=== PATIENT | male | born 1950 | race Caucasian/White ===

== ENCOUNTER 2018-01-07 17:02 | Inpatient (IN) | payer MEDICARE, OTHER ==
[~2018-01-07] VITALS: Ht 167.6 cm; Wt 55.8 kg
--- NOTE | 2018-01-07 17:02 | NUR ---
Patient is now here in [facility]ER dept for medical clearance by our ER doctor. Patient is on psych HOLD since 1500 today by Stephon Jeter and for admission to our MHU bed 139-B. Per medical records that came with the patient & per nursing hairspring fabrication supervisor-Kong, this patient was already accepted by Dr Judge & Dr Mike Merida before coming to out ER department. fire control officer ([phone]) was called for heads up.
[2018-01-07 17:36] LABS: BASOPHILS # (AUTO) 0.1 K/uL (0.0-8.0); BASOPHILS % (AUTO) 1.2 % (0.0-2.0); EOSINOPHILS # (AUTO) 0.1 K/uL (0.0-0.7); EOSINOPHILS % (AUTO) 0.7 % (0.0-7.0); HEMATOCRIT 38.2 % (36.7-47.1); HEMOGLOBIN 12.9 g/dL (12.5-16.3); LYMPHOCYTES # (AUTO) 1.3 K/uL (20.0-40.0); LYMPHOCYTES % (AUTO) 15.4 % (20.5-51.5); MEAN CORPUSCULAR HEMOGLOBIN 30.6 uug (23.8-33.4); MEAN CORPUSCULAR HGB CONC 34 g/dL (32.5-36.3); MEAN CORPUSCULAR VOLUME 90.4 fL (73.0-96.2); MONOCYTES # (AUTO) 0.8 K/uL (2.0-10.0); MONOCYTES % (AUTO) 10.4 % (0.0-11.0); NEUTROPHILS # (AUTO) 5.9 K/uL (1.8-8.9); NEUTROPHILS % (AUTO) 72.3 % (38.5-71.5); PLATELET COUNT (AUTO) 250 K/uL (152-348); RED BLOOD CELL COUNT(AUTO) 4.23 MIL/uL (4.06-5.63); WHITE BLOOD COUNT (AUTO) 8.2 K/uL (3.6-10.2)
[2018-01-07 17:45] LABS: CARBON DIOXIDE 29 mmol/L (21-32); CHLORIDE 103 mmol/L (98-107); CREATININE 0.8 mg/dL (0.6-1.3); GLUCOSE 89 mg/dL (74-106); POTASSIUM 4.2 mmol/L (3.5-5.1); UREA NITROGEN, BLOOD 18 mg/dL (7-18)
[2018-01-07] MEDS ORDERED: TEMA7.5C PO (17:48)
[2018-01-07] MEDS ORDERED: NICO-670 TD (17:48)
[2018-01-07] MEDS ORDERED: MAGN400O6 PO (17:48)
[2018-01-07] MEDS ORDERED: GABA100C PO (17:48)
[2018-01-07] MEDS ORDERED: DOCU250C14 PO (17:48)
[2018-01-07] MEDS ORDERED: OXYB15TA PO (17:48)
[2018-01-07] MEDS ORDERED: NA P133E RC (17:48)
[2018-01-07] MEDS ORDERED: NICO4GUM38 BC (17:48)
[2018-01-07] MEDS ORDERED: BISA10SU12 RC (17:48)
[2018-01-07] MEDS ORDERED: FINA5TAB3 PO (17:48)
[2018-01-07] MEDS ORDERED: ESCI10TA PO (17:48)
[2018-01-07] MEDS ORDERED: PANT40TA2 PO (17:48)
[2018-01-07] MEDS ORDERED: CALC100067 PO (17:48)
[2018-01-07] MEDS ORDERED: ACET325T53 PO (17:48)
[2018-01-07] MEDS ORDERED: OLAN2.5T3 PO (17:48)
[2018-01-07] MEDS ORDERED: TAMS-3 PO (17:48)
[2018-01-07] MEDS ORDERED: LORA-259 PO (17:48)
[2018-01-07 17:49] LABS: ETHANOL < 3 MG/DL (0-0)
[2018-01-07 17:51] LABS: ALANINE AMINOTRANSFERASE 25 U/L (16-63); ALKALINE PHOSPHATASE 94 U/L (50-136); ASPARTATE AMINOTRANSFERASE 20 U/L (15-37); BILIRUBIN,DIRECT 0.1 mg/dL (0.0-0.2); BILIRUBIN,TOTAL 0.5 mg/dL (0.2-1.0); TOTAL PROTEIN, SERUM 7.2 g/dL (6.4-8.2)
[2018-01-07 18:04] LABS: ACETAMINOPHEN < 2.0 ug/mL (10-30)
--- NOTE | 2018-01-07 18:28 | NUR ---
1814- Patient ambulated to the bathroom with a walker to provide the urine. 1820- Urine was sent to lab. 1827- Patient is eating dinner now. Pre & post-void bladder scans were done by TAYO Sawyer. Dr Morrison reviewed the bladder scan results.
[2018-01-07 18:29] LABS: *BILIRUBIN,URIN NEGATIVE (NEGATIVE); *BLOOD, URINE NEGATIVE (NEGATIVE); *CLARITY,URINE CLEAR (CLEAR); *COLOR,URINE YELLOW (YELLOW); *KETONES,URINE NEGATIVE (NEGATIVE); *PROTEIN,URINE NEGATIVE (NEGATIVE); *UROBILINOGEN,URINE 0.2 E.U./dl (NORMAL); LEUKOCYTE ESTERASE ,URINE NEGATIVE (NEGATIVE); NITRITE, URINE NEGATIVE (NEGATIVE); PH,URINE 8.5 (5.0-8.0); UGLUCOSE NEGATIVE (NEGATIVE)
[2018-01-07 18:43] LABS: BACTERIA,URINE NONE SEEN /HPF (NONE SEEN); RBC,URINE 0-3 /HPF (0-3); SQUAMOUS EPITHELIAL CELL,UR FEW /HPF (NONE SEEN); WBC,URINE 0-3 /HPF (0-3)
--- NOTE | 2018-01-07 18:45 | NUR ---
172- Dr Dubon medically cleared the patient for admission to MHU. 1844- still for 1:1 sitter for MHU admission
[2018-01-07 18:53] LABS: *AMPHETAMINE, URINE NEGATIVE (NEGATIVE); *BARBITURATE, URINE NEGATIVE (NEGATIVE); *CANNABINOID, URINE NEGATIVE (NEGATIVE); *COCCAINE, URINE NEGATIVE (NEGATIVE); *OPIATE, URINE NEGATIVE (NEGATIVE); *PHENCYCLIDINE SCREEN,URINE NEGATIVE (NEGATIVE)
--- NOTE | 2018-01-07 19:05 | NUR ---
Hands off report given to MOE vale for 1:1 sitter & admission to our MHU.
--- NOTE | 2018-01-07 19:14 | NUR ---
REPORT TAKEN FROM MOE MITCHELL. ASSUMING PT CARE AT THIS TIME.
--- NOTE | 2018-01-07 19:25 | NUR ---
REPORT GIVEN TO MOE NICHOLS IN U.
[2018-01-07] MEDS ORDERED: MAG HYDROX/AL HYDROX/SIMETH 30 ML LIQUID UDC PO PRN (19:45)
[2018-01-07] MEDS ORDERED: MAGNESIUM HYDROXIDE 30 ML LIQUID UDC PO PRN (19:45)
--- NOTE | 2018-01-07 19:47 | NUR ---
Pt. admitted to MHU, under care of Dr. RIOS Belongs List completed
[2018-01-07] MEDS: LORAZEPAM 1 MG TABLET PO PRN (20:24)
[2018-01-07] MEDS: NICOTINE 21 MG/24HR PATCH TD SCH (21:00)
--- NOTE | 2018-01-07 22:00 | NUR ---
AT APPROX 1935, ADMITTED 67 YEARS OLD MALE FROM [facility] TO [facility] ON A 5150 FOR GD. HOLD STARED ON 01/07/18 AT 1500 AND WILL END ON 01/10/18 AT 1500. PER HOLD, PATIENT HAS BEEN REFUSING MEDICATION AND CARE. HE ATTEMPTED TO ELOPE THE FACILITY BY BREAKING A WINDOW AND MOVING FURNITURE THE PT BECOME TEARFUL STATING THAT "I WILL NEVER SEE MY MOTHER AGAIN." PT IS ANGRY AT STAFF FOR BEING "LOCKED UP". HE WANTS TO BE OUT ON THE STREETS. PT IS UNABLE TO PROVIDE FOR HIMSELF AND THREATENING HARM WHEN CONFUSED. PATIENT WAS FIRST SEEN AT [facility], HE WAS THEN MEDICALLY CLEARED FOR ADMISSION TO MHU. UPON ENTRY, PATIENT NOTED A/O X2. POOR INSIGHT AND JUDGMENT TO THE REASON FOR HIS ADMISSION TO MHU WAS NOTED. PT REQUESTED TO SMOKE A CIGARETTE, PT WAS GIVEN MULTIPLE REDIRECTION WELL UNIT RULES, HIS HOLD AND THE REASON FOR HIS ADMISSION TO MHU. HOWEVER, HE BECAME ANGRY AND AGITATIVE. HE SAID, "THEY TOLD ME A COULD SMOKE HERE." ATIVAN 1MG PO PRN WAS GIVEN. AFTER A FEW MINUTES, PATIENT STARTED CRYING, HE STATED "I AM NOT GOING TO SEE MY MOTHER AGAIN." I DON'T WANT TO GO BACK TO [facility], I WANT TO BE ON THE STREETS." PATIENT WAS REASSURED. HE REFUSED NICOTINE PATCH. HE PARTIALLY SIGNED ADMISSION PAPERS. SKIN ASSESSMENT WAS LIMITED DUE TO PATIENT'S NON-COMPLIANT. TWO CRUSTED ABRASIONS OF APPROX 5CM X 3 CM EACH WERE NOTED IN LEFT KNEE. PT STATED THAT HE FELL YESTERDAY IN HIS ROOM AT [facility], HE SAID, "IT WAS DARK IN MY ROOM AND I TRIPPED AND FELL LAST NIGHT." IT WAS ALSO OBSERVED OVERLONG AND POSSIBLE FUNGUS TOENAILS BILATERAL, A RASH IN HIS RIGHT LOWER LEG POSTERIOR ASPECT, AND TWO WELL-HEALED SURGICAL SCARS IN HIS LOWER BACK, PROTRUDING SPINE MID-LOWER BACK. PT IS UNDER THE CARE OF DR RIOS AND CHRIST ROONEY ([employer]). PT IS ON 1:1 SUPERVISION FOR FALL PRECAUTION. WILL CONTINUE TO MONITOR.
--- NOTE | 2018-01-07 22:30 | NUR ---
PATIENT NOTED CALM, RESTING IN HIS ROOM. ATIVAN 1MG PO PRN WAS EFFECTIVE. UPON INTERVIEW, PATIENT DENIES SI/HI. DENIES VH/VH. WILL CONTINUE ON 1:1 SUPERVISION FOR FALL SAFETY.
--- NOTE | 2018-01-08 06:51 | NUR ---
PATIENT SLEPT FOR APPROX 6.00 HRS THROUGH THE NIGHT. A SMALL PIMPLE, PINK IN COLOR OF APPROX [id number] WAS NOTED IN UPPER MID BACK. NO DISCHARGE, NO SWELLING WAS NOTED AT THIS, PATIENT DENIES PAIN. HE IS SEEN LESS ANXIOUS. DENIES SI. ABLE TO CFS. WILL CONTINUE ON 1:1 SUPERVISION
[2018-01-08] MEDS: NICOTINE 21 MG/24HR PATCH TD SCH ×2 (09:00→21:30)
[2018-01-08] MEDS ORDERED: ACETAMINOPHEN 325 MG TABLET PO PRN (11:45)
[2018-01-08] MEDS ORDERED: FLEET ENEMA 133 ML BOTTLE RC PRN (11:45)
[2018-01-08] MEDS ORDERED: BISACODYL 10 MG SUPP.RECT RC PRN (11:45)
[2018-01-08] MEDS ORDERED: MAGNESIUM HYDROXIDE 30 ML LIQUID UDC PO PRN (11:45)
--- NOTE | 2018-01-08 14:44 | NUR ---
WOUND CARE CONSULT: PT REFUSED SKIN ASSESSMENT AND WAS EXTREMELY AGITATED. PER NURSING DOCUMENTATION AND PHOTOS, PT HAS PIMPLE LESION TO BACK AND LEFT KNEE ABRASIONS, PRESENT ON ADMISSION. RECOMMENDATIONS MADE BASED ON NURSING REPORT/DOCUMENTATION AND DISCUSSED WITH NURSING STAFF. WILL SEE PRKelvin HARMON IN AGREEMENT WITH PLAN OF CARE.
[2018-01-08] MEDS: BACITRACIN/POLYMYXIN B OINT 15 GM TUBE TOP SCH (15:00)
[2018-01-08] MEDS ORDERED: Z GUARD REMEDY PASTE 57 GM TUBE TOP PRN (15:00)
[2018-01-08 16:06] VITALS: BP 138/66
[2018-01-08] MEDS: OLANZAPINE ZYDIS 5 MG TAB.RAPDIS PO SCH (17:00)
[2018-01-08] MEDS: CALCIUM CARBONATE 500 MG TAB.CHEW PO SCH (17:00)
[2018-01-08] MEDS ORDERED: CALCIUM CARBONATE 500 MG PO SCH (17:00)
--- NOTE | 2018-01-08 19:55 | NUR ---
PATIENT ALERT ORIENTED, NO COMPLAIN OF PAIN AT THIS TIME. PATIENT ON 1;1 SITTER FOR SAFETY, PATIENT RISK FOR FALL, WANDERS AROUND WITH FWW. NO BEHAVIORAL PROBLEM NOTED AT THIS TIME.
[2018-01-08] MEDS: NICOTINE POLACRILEX 4 MG GUM-PK OF TEN BC PRN (20:42)
[2018-01-08] MEDS: TAMSULOSIN HCL 0.4 MG CAP.SR.24H PO SCH (20:44)
[2018-01-08] MEDS: TEMAZEPAM 7.5 MG CAPSULE PO PRN (20:53)
--- NOTE | 2018-01-08 21:30 | NUR ---
PATIENT REFUSED THE PATCH DURING DAY SHIFT, AND REQUEST TO HAVE TONIGHT, PATCH WAS GIVEN PER REQUEST.
[2018-01-09] MEDS: ACETAMINOPHEN 325 MG TABLET PO PRN (01:20)
[2018-01-09] MEDS: LORAZEPAM 1 MG TABLET PO PRN ×3 (01:20→18:40)
[2018-01-09 01:23] VITALS: BP 138/93
--- NOTE | 2018-01-09 06:09 | NUR ---
PATIENT DID NOT SLEPT LAST NIGHT, PATIENT HAS EPISODES OF ANXIETY, WITH MULTIPLE REQUEST NEEDS FROM STAFF, WITH EPISODES OF CRYING, ATTEND ALL NEEDS, REDIRECT PATIENT, AND MEDICATED AT PER PATIENT REQUEST, CONT ON 1;1 SITTER FOR SAFETY. CONT TO MONITOR.
[2018-01-09] MEDS: PANTOPRAZOLE SODIUM 40 MG TABLET.DR PO SCH (06:30)
[2018-01-09 07:30] VITALS: BP 125/82
[2018-01-09] MEDS: CALCIUM CARBONATE 500 MG TAB.CHEW PO SCH ×2 (08:45→16:19)
[2018-01-09] MEDS: FINASTERIDE 5 MG TABLET PO SCH (08:45)
[2018-01-09] MEDS: OXYBUTYNIN XL 5 MG TABSR PO SCH (08:46)
[2018-01-09] MEDS: BACITRACIN/POLYMYXIN B OINT 15 GM TUBE TOP SCH (08:46)
[2018-01-09] MEDS: OLANZAPINE ZYDIS 5 MG TAB.RAPDIS PO SCH ×2 (08:46→16:19)
[2018-01-09] MEDS: ESCITALOPRAM OXALATE 10 MG TABLET PO SCH (08:46)
[2018-01-09] MEDS: DOCUSATE SODIUM 250 MG CAPSULE PO SCH (08:46)
[2018-01-09] MEDS ORDERED: OXYBUTYNIN CHLORIDE 15 MG PO SCH (09:00)
[2018-01-09] MEDS ORDERED: NICOTINE 7 MG/24HR PATCH TD SCH (09:00)
[2018-01-09] MEDS: NICOTINE POLACRILEX 4 MG GUM-PK OF TEN BC PRN (10:28)
[2018-01-09 15:26] VITALS: BP 116/77
--- NOTE | 2018-01-09 19:25 | NUR ---
no changes noted. all safety needs are met.
[2018-01-09 20:20] VITALS: BP 132/66
[2018-01-09] MEDS: TAMSULOSIN HCL 0.4 MG CAP.SR.24H PO SCH (20:27)
[2018-01-09] MEDS: TEMAZEPAM 7.5 MG CAPSULE PO PRN (20:28)
[2018-01-09] MEDS: NICOTINE 21 MG/24HR PATCH TD SCH (21:00)
--- NOTE | 2018-01-09 22:00 | NUR ---
received to care, lying in bed, pleasant, but angry when approached. states he is waiting for placement to a facility, and is hoping to leave by sunday. 1;1 sitte remains at his side, for safety (gait is slightly unsteady) PRN restoril was given at 2027, for insomnia. as of 2199, he appears to be asleep. no distress noted. will continue to monitor closely.
--- NOTE | 2018-01-10 06:00 | NUR ---
slept 5 hours, total. continues to sleep. no distress noted.
[2018-01-10] MEDS: PANTOPRAZOLE SODIUM 40 MG TABLET.DR PO SCH (06:23)
[2018-01-10 08:00] VITALS: BP 126/83
[2018-01-10] MEDS: ESCITALOPRAM OXALATE 10 MG TABLET PO SCH (09:03)
[2018-01-10] MEDS: OXYBUTYNIN XL 5 MG TABSR PO SCH (09:03)
[2018-01-10] MEDS: FINASTERIDE 5 MG TABLET PO SCH (09:03)
[2018-01-10] MEDS: DOCUSATE SODIUM 250 MG CAPSULE PO SCH (09:03)
[2018-01-10] MEDS: CALCIUM CARBONATE 500 MG TAB.CHEW PO SCH ×2 (09:03→16:34)
[2018-01-10] MEDS: BACITRACIN/POLYMYXIN B OINT 15 GM TUBE TOP SCH (09:04)
[2018-01-10] MEDS: OLANZAPINE ZYDIS 5 MG TAB.RAPDIS PO SCH ×2 (09:04→16:34)
[2018-01-10] MEDS: NICOTINE 21 MG/24HR PATCH TD SCH (09:04)
--- NOTE | 2018-01-10 09:11 | NUR ---
Gps/Paralegal- Remains with 1:1 Nursing supervision for safety, refusing to eat breakfast , refusing to take routine am. meds. needed prompting, mumbles at times, resistive to am care, Noted left knee scabs, redness to the site noted. Refusing to be bothered. Will re offer meds. at a late time,safety reviewed and emphasized.
--- NOTE | 2018-01-10 10:35 | NUR ---
Initial DC Plan: Patient currently resides at [facility] [[address], [place] [address]; ] and does not want to return there upon discharge. SW will follow up with MD, patient, and patient's brother Chong [[phone]] to discuss most appropriate discharge plans. SW will form a safe and proper discharge.
--- NOTE | 2018-01-10 10:42 | NUR ---
Firearms Reporting: LAKESHA submitted Mental Health Report to [facility] on 01/10.
--- NOTE | 2018-01-10 10:56 | NUR ---
Mental Status for Social Service Assessment: Patient appeared alert and oriented x3 during interview. Pt presented as paranoid with an irritable mood and tearful affect. His thought process is circumstantial. He denied auditory and visual hallucinations, and SI and HI. His insight and judgment are poor.
--- NOTE | 2018-01-10 14:00 | NUR ---
Gps/Package Car Driver- Sinan , roams around on his wheel chair, remains with a sitter for safety, remains irritable , encouraged attending his group therapy. Continue to monitor closely for safety, easily gets anxious, and gets irritable, demanding behavior, needed redirections as well as prompting .
--- NOTE | 2018-01-10 15:31 | NUR ---
Gps/Title Specialist- Left knee scabs, reddened areas noted, patient hesitant to let staff do wound care, "i does not help ,leave me alone" . Reviewed with patient the importance of letting staff assist with his wound care to promote healing . Patient remains to get irritable , claimed he wants to rest/sleep, he cant get any rest in this place.
[2018-01-10 16:00] VITALS: BP 123/88
[2018-01-10 20:00] VITALS: BP 117/72
[2018-01-10] MEDS: TEMAZEPAM 7.5 MG CAPSULE PO PRN (20:15)
[2018-01-10] MEDS: TAMSULOSIN HCL 0.4 MG CAP.SR.24H PO SCH (20:16)
[2018-01-10] MEDS: LORAZEPAM 1 MG TABLET PO PRN (21:42)
--- NOTE | 2018-01-10 22:30 | NUR ---
received to care, lying in bed, pleasant, but angry when approached. labile and verbally abusive at times. 1;1 sitter remains at his side, for safety (gait is slightly unsteady) PRN restoril was given at 2014, for insomnia. PRN ativan was given at 2141, for anxiety. as of 2229, he appears to be asleep. no distress noted. will continue to monitor closely.
[2018-01-11] MEDS: PANTOPRAZOLE SODIUM 40 MG TABLET.DR PO SCH (06:35)
[2018-01-11 07:30] VITALS: BP 111/63
--- NOTE | 2018-01-11 08:57 | NUR ---
Gps/Lead Software Qa Engineer- Unable to administer routine am. meds. patient asleep, will re offer at a later time, when awake. remains with 1:1 Nursing supervision for safety
[2018-01-11] MEDS: NICOTINE 21 MG/24HR PATCH TD SCH (09:00)
[2018-01-11] MEDS: DOCUSATE SODIUM 250 MG CAPSULE PO SCH (09:00)
[2018-01-11] MEDS: FINASTERIDE 5 MG TABLET PO SCH (09:15)
[2018-01-11] MEDS: CALCIUM CARBONATE 500 MG TAB.CHEW PO SCH ×2 (09:15→16:59)
[2018-01-11] MEDS: OLANZAPINE ZYDIS 5 MG TAB.RAPDIS PO SCH ×3 (09:15→19:00)
[2018-01-11] MEDS: ESCITALOPRAM OXALATE 10 MG TABLET PO SCH (09:15)
[2018-01-11] MEDS: OXYBUTYNIN XL 5 MG TABSR PO SCH (09:16)
[2018-01-11] MEDS: BACITRACIN/POLYMYXIN B OINT 15 GM TUBE TOP SCH (09:16)
[2018-01-11 14:32] VITALS: BP 111/66
--- NOTE | 2018-01-11 16:59 | NUR ---
Gps/Roll Wrapper- Refused to take pm mediciations, claimed he will not take anymore medications, refusing applications of double top. abx, to left knee wound and will not talk to his Mom anymore. Appeared to be upset, depressed, encouraged continued verbaliizations of his feelings, claimed he does not want to talk right now. Remains with 1:1 Nursing supervision for safety.
[2018-01-11] MEDS: TAMSULOSIN HCL 0.4 MG CAP.SR.24H PO SCH (20:00)
[2018-01-11] MEDS: LORAZEPAM 1 MG TABLET PO PRN (20:00)
[2018-01-11 20:06] VITALS: BP 159/51
[2018-01-11] MEDS: TEMAZEPAM 7.5 MG CAPSULE PO PRN (21:25)
[2018-01-11] MEDS: ACETAMINOPHEN 325 MG TABLET PO PRN (22:07)
--- NOTE | 2018-01-11 22:30 | NUR ---
received to care, up in wheel chair, 1 to 1 sitter at side, for safety. remains angry, and verbally hostile at times. behavior is manageable. PRN ativan was given at 1999, for anxiety, which was effective, by 2099. PRN restoril was given at 2124, for insomnia. as of 2229, he appears to be asleep. no distress noted.
--- NOTE | 2018-01-12 06:00 | NUR ---
slept 5.5 hours, total. continues to sleep. no distress noted.
[2018-01-12] MEDS: PANTOPRAZOLE SODIUM 40 MG TABLET.DR PO SCH (06:22)
[2018-01-12] MEDS: NICOTINE 21 MG/24HR PATCH TD SCH ×2 (09:00→16:17)
[2018-01-12] MEDS: BACITRACIN/POLYMYXIN B OINT 15 GM TUBE TOP SCH (09:00)
[2018-01-12] MEDS: FINASTERIDE 5 MG TABLET PO SCH (09:58)
[2018-01-12] MEDS: OXYBUTYNIN XL 5 MG TABSR PO SCH (09:59)
[2018-01-12] MEDS: OLANZAPINE ZYDIS 5 MG TAB.RAPDIS PO SCH ×2 (09:59→16:40)
[2018-01-12] MEDS: DOCUSATE SODIUM 250 MG CAPSULE PO SCH (09:59)
[2018-01-12] MEDS: ESCITALOPRAM OXALATE 10 MG TABLET PO SCH (09:59)
[2018-01-12] MEDS: CALCIUM CARBONATE 500 MG TAB.CHEW PO SCH ×2 (10:00→16:40)
[2018-01-12 15:45] VITALS: BP 108/68
[2018-01-12] MEDS: LORAZEPAM 1 MG TABLET PO PRN ×2 (16:16→22:52)
[2018-01-12 19:51] VITALS: BP 114/75
[2018-01-12] MEDS: TAMSULOSIN HCL 0.4 MG CAP.SR.24H PO SCH (20:26)
[2018-01-12] MEDS: TEMAZEPAM 7.5 MG CAPSULE PO PRN (20:27)
--- NOTE | 2018-01-12 22:34 | NUR ---
ON 1:1 SITTER FOR SAFETY, CALM AND COOPERATIVE. IN BED AT THIS TIME, STILL AWAKE. NO AGITATION, SNACKS GIVEN PER REQUEST. CONTINUED TO MONITOR.
--- NOTE | 2018-01-12 22:53 | NUR ---
GPS: PATIENT C/O ANXIETY. ATIVAN 1 MG PO GIVEN PAER PATIENT REQUESTED.
--- NOTE | 2018-01-12 23:24 | NUR ---
GPS: PATIENT IS CALM NOW. PRN EFFECTIVE FOR ANXIETY.
[2018-01-13] MEDS: PANTOPRAZOLE SODIUM 40 MG TABLET.DR PO SCH (06:18)
--- NOTE | 2018-01-13 06:39 | NUR ---
GPS: REMAIN CALM AND COOPERATIVE. SLEPT 3:30 HRS THROUGH THE NIGHT RESTORIL 7.5 MG PO GIVEN. SHOWERED THIS MORNING. ASSISTED WITH SHOWER. CONTINUE ON 1:1 SITTER @ BEDSIDE FOR SAFETY. RESTING IN BED COMFORTABLY.
[2018-01-13 08:00] VITALS: BP 114/70
[2018-01-13] MEDS: LORAZEPAM 1 MG TABLET PO PRN (08:13)
[2018-01-13] MEDS: OLANZAPINE ZYDIS 5 MG TAB.RAPDIS PO SCH ×2 (08:30→17:00)
[2018-01-13] MEDS: CALCIUM CARBONATE 500 MG TAB.CHEW PO SCH ×2 (08:30→17:00)
[2018-01-13] MEDS: DOCUSATE SODIUM 250 MG CAPSULE PO SCH (08:30)
[2018-01-13] MEDS: OXYBUTYNIN XL 5 MG TABSR PO SCH (08:31)
[2018-01-13] MEDS: FINASTERIDE 5 MG TABLET PO SCH (08:31)
[2018-01-13] MEDS: NICOTINE 21 MG/24HR PATCH TD SCH (08:31)
[2018-01-13] MEDS: ESCITALOPRAM OXALATE 10 MG TABLET PO SCH (08:31)
[2018-01-13] MEDS: BACITRACIN/POLYMYXIN B OINT 15 GM TUBE TOP SCH (08:31)
[2018-01-13 16:26] VITALS: BP 102/54
[2018-01-13 20:00] VITALS: BP 124/83
[2018-01-13] MEDS: TAMSULOSIN HCL 0.4 MG CAP.SR.24H PO SCH (22:10)
[2018-01-13] MEDS: TEMAZEPAM 7.5 MG CAPSULE PO PRN (22:19)
[2018-01-13] MEDS: NICOTINE POLACRILEX 4 MG GUM-PK OF TEN BC PRN (23:22)
[2018-01-14] MEDS: LORAZEPAM 1 MG TABLET PO PRN ×3 (00:07→20:38)
[2018-01-14] MEDS: PANTOPRAZOLE SODIUM 40 MG TABLET.DR PO SCH (06:34)
--- NOTE | 2018-01-14 06:49 | NUR ---
DID NOT SLEEP WELL THROUGHOUT THE NIGHT EVEN THOUGH HE WAS GIVEN HIS MEDS AND SNACKS.FREQUENTLY WAKES TO ASK ABOUT BREAKFAST.
[2018-01-14 07:30] VITALS: BP 124/96
[2018-01-14] MEDS: OLANZAPINE ZYDIS 5 MG TAB.RAPDIS PO SCH ×2 (08:35→16:21)
[2018-01-14] MEDS: FINASTERIDE 5 MG TABLET PO SCH (08:35)
[2018-01-14] MEDS: CALCIUM CARBONATE 500 MG TAB.CHEW PO SCH ×2 (08:35→16:21)
[2018-01-14] MEDS: OXYBUTYNIN XL 5 MG TABSR PO SCH (08:35)
[2018-01-14] MEDS: NICOTINE 21 MG/24HR PATCH TD SCH (08:35)
[2018-01-14] MEDS: ESCITALOPRAM OXALATE 10 MG TABLET PO SCH (08:36)
[2018-01-14] MEDS: BACITRACIN/POLYMYXIN B OINT 15 GM TUBE TOP SCH (08:36)
[2018-01-14] MEDS: DOCUSATE SODIUM 250 MG CAPSULE PO SCH (08:36)
[2018-01-14 15:25] VITALS: BP 144/78
[2018-01-14 20:00] VITALS: BP 136/93
[2018-01-14] MEDS: TAMSULOSIN HCL 0.4 MG CAP.SR.24H PO SCH (20:38)
[2018-01-14] MEDS: TEMAZEPAM 7.5 MG CAPSULE PO PRN (22:57)
--- NOTE | 2018-01-15 06:48 | NUR ---
PATIENT INITIALLY COULD NOT GO TO SLEEP. KEPT PACING THE HALLWAY IN HIS WHEELCHAIR AND VERY AGITATED,TAB LORAZEPAM 1MG WAS GIVEN AND 2 HRS LATER HE CAME ASKING FOR A SLEEPING PILL. TAB RESTORIL WAS GIVEN AND HE SLEPT FOR 5:45HRS.WILL CONTINUE WITH PLAN OF CARE
[2018-01-15] MEDS: PANTOPRAZOLE SODIUM 40 MG TABLET.DR PO SCH (07:04)
[2018-01-15] MEDS: DOCUSATE SODIUM 250 MG CAPSULE PO SCH (09:00)
[2018-01-15] MEDS: BACITRACIN/POLYMYXIN B OINT 15 GM TUBE TOP SCH (09:00)
[2018-01-15] MEDS: NICOTINE 21 MG/24HR PATCH TD SCH (09:08)
[2018-01-15] MEDS: OXYBUTYNIN XL 5 MG TABSR PO SCH (09:08)
[2018-01-15] MEDS: CALCIUM CARBONATE 500 MG TAB.CHEW PO SCH ×2 (09:08→16:44)
[2018-01-15] MEDS: OLANZAPINE ZYDIS 5 MG TAB.RAPDIS PO SCH ×2 (09:09→16:49)
[2018-01-15] MEDS: FINASTERIDE 5 MG TABLET PO SCH (09:09)
[2018-01-15] MEDS: ESCITALOPRAM OXALATE 10 MG TABLET PO SCH (09:09)
[2018-01-15] MEDS: LORAZEPAM 1 MG TABLET PO PRN ×2 (13:24→22:21)
[2018-01-15 15:16] VITALS: BP 137/68
[2018-01-15 20:00] VITALS: BP 100/81
[2018-01-15] MEDS: TAMSULOSIN HCL 0.4 MG CAP.SR.24H PO SCH (21:19)
[2018-01-15] MEDS: TEMAZEPAM 7.5 MG CAPSULE PO PRN (21:19)
--- NOTE | 2018-01-16 00:30 | NUR ---
received to care, up in wheel chair, 1 to 1 sitter at side, for safety. remains angry, and verbally hostile at times. behavior is manageable. PRN ativan was given at 2118, for insomnia, which was ineffective, PRN ativan was given at 2226. for anxiety. as of 29, he remains restless, and intermittently awake. sitter remains at side. currently eating a snack. will continue to monitor closely.
--- NOTE | 2018-01-16 02:05 | NUR ---
remains awake. states he is anxious about being discharged. PRN tylenol was given at his request.
[2018-01-16] MEDS: ACETAMINOPHEN 325 MG TABLET PO PRN (02:06)
--- NOTE | 2018-01-16 06:36 | NUR ---
Shift end report: Sitter remains at bedside. Patient slept x 2hours only. In and out his room frequently demanding something from staff, either food or PRN medications. All needs attended and met. No significant event reported all night. Continue care as planned.
[2018-01-16] MEDS: PANTOPRAZOLE SODIUM 40 MG TABLET.DR PO SCH (07:00)
[2018-01-16 07:30] VITALS: BP 117/77
--- NOTE | 2018-01-16 07:56 | NUR ---
pt. on bed still sleeping sitter at bedside.
--- NOTE | 2018-01-16 08:24 | NUR ---
DC Note: Patient will be discharged to [facility] [[address], [place] [address]; ] via ambulance. SW spoke with Summer at [facility] to confirm discharge plans. Patient is alert and oriented x4 and is aware and agreeable to discharge plans. Patient's mother Amy [[phone]] and brother Chong [[phone]] are aware and agreeable to discharge plans. Patient will follow up with Dr. Horton (Psychiatrist) and Dr. Estrada (Visual Specialist) at the facility. Patient was provided smoking cessation referrals for [employer] [id number]-LUNGUSA and [employer] [phone].
[2018-01-16] MEDS: DOCUSATE SODIUM 250 MG CAPSULE PO SCH (08:49)
[2018-01-16] MEDS: FINASTERIDE 5 MG TABLET PO SCH (08:49)
[2018-01-16] MEDS: ESCITALOPRAM OXALATE 10 MG TABLET PO SCH (08:49)
[2018-01-16] MEDS: CALCIUM CARBONATE 500 MG TAB.CHEW PO SCH (08:50)
[2018-01-16] MEDS: OXYBUTYNIN XL 5 MG TABSR PO SCH (08:50)
[2018-01-16] MEDS: BACITRACIN/POLYMYXIN B OINT 15 GM TUBE TOP SCH (08:51)
[2018-01-16] MEDS: NICOTINE 21 MG/24HR PATCH TD SCH (08:51)
[2018-01-16] MEDS: OLANZAPINE ZYDIS 5 MG TAB.RAPDIS PO SCH (09:18)
--- NOTE | 2018-01-16 13:26 | NUR ---
pt. seen by MD and ordered for discharge to [facility]. pt. family awares. pt. refused some of his skin like the back. some pictures taken. due meds. given. pt. taken by transport/ambulance, report given. all belongings given and signed by pt.
== END 2018-01-16 13:25 | DRG 885 ==
LOC: ER 17:05 → GPS 19:24
PROVIDERS: ADMIT Psychiatry & Neurology Psychiatry; ATTEND Nurse Practitioner Acute Care
DX: F29 Unspecified psychosis not due to a substance or known physiological condition (principal); S81.002A Unspecified open wound, left knee, initial encounter; F17.210 Nicotine dependence, cigarettes, uncomplicated; K21.9 Gastro-esophageal reflux disease without esophagitis; F32.9 Major depressive disorder, single episode, unspecified; F41.9 Anxiety disorder, unspecified; M19.90 Unspecified osteoarthritis, unspecified site; Z73.6 Limitation of activities due to disability; N40.0 Benign prostatic hyperplasia without lower urinary tract symptoms; X58.XXXA Exposure to other specified factors, initial encounter; Y93.9 Activity, unspecified; Y92.129 Unspecified place in nursing home as the place of occurrence of the external cause
CPT/HCPCS: 36415; 80307; 85025; 93005; A4663; G0480; G0480-TC